=== PATIENT | male | born 1975 | race Two or more races ===

== ENCOUNTER 2020-03-03 03:53 | Emergency (ER) | payer OTHER ==
[~2020-03-03] VITALS: Ht 180.3 cm; Wt 106.7 kg
--- NOTE | 2020-03-03 04:18 | NUR ---
Patient presents to ER c/o LLQ abd pain x1 day. Seen yesterday and dx with kidney stones. Hx of kidney stones. Here today for pain control.
[2020-03-03] MEDS ORDERED: ONDANSETRON 2MG/ML, 2ML ONE (04:46)
[2020-03-03] MEDS ORDERED: KETOROLAC 30 MG/1 ML ONE (04:46)
[2020-03-03] MEDS ORDERED: MORPHINE SULFATE 4 MG/ML, 1ML ONE ×2 (04:46→06:18)
[2020-03-03] MEDS ORDERED: SODIUM CHLORIDE FLUSH 10ML SYR IVF ONE (05:00)
[2020-03-03] MEDS ORDERED: KETOROLAC 30 MG/1 ML IVPush ONE (05:00)
[2020-03-03] MEDS ORDERED: ONDANSETRON 2MG/ML, 2ML IVPush ONE (05:00)
[2020-03-03] MEDS: MORPHINE SULFATE 4 MG/ML, 1ML IVPush PRN ×2 (05:03→06:22)
[2020-03-03 05:16] LABS: MICROSCOPIC AUTO
[2020-03-03 05:37] LABS: BASOPHILS # (AUTO) 0.06 x10^3/uL (0-0.1); BASOPHILS % (AUTO) 1 % (0-1); EOSINOPHILS # (AUTO) 0.18 x10^3/uL (0-0.4); EOSINOPHILS % (AUTO) 2 % (1-7); LYMPHOCYTES # (AUTO) 1.42 x10^3/uL (1-3.4); LYMPHOCYTES % (AUTO) 15 % (22-44); MD NO; MEAN CORPUSCULAR HGB CONC 33.6 g/dL (33.2-36.2); MEAN CORPUSCULAR VOLUME 92.2 fL (81-97); MEAN PLATELET VOLUME 8.7 fL (7.4-10.4); MONOCYTES # (AUTO) 0.53 x10^3/uL (0.2-0.8); MONOCYTES % (AUTO) 5 % (2-9); NEUTROPHILS # (AUTO) 7.63 x10^3/uL (1.8-6.8); NEUTROPHILS % (AUTO) 78 % (42-75); PLATELET COUNT 159 x10^3/uL (130-400); RED BLOOD COUNT 5.15 x10^6/uL (4.38-5.82); RED CELL DISTRIBUTION WIDTH 13.4 % (9.4-14.8)
[2020-03-03 05:50] LABS: ALBUMIN 3.8 g/dL (3.4-5.0); ANION GAP 9 mmol/L (5-15); CALCIUM 8.5 mg/dL (8.5-10.1); CHLORIDE 110 mmol/L (98-107); CREATININE 1.21 mg/dL (0.7-1.3)
[2020-03-03 06:07] VITALS: BP 158/96
== END 2020-03-03 06:57 | disposition home or self-care (01) ==
LOC: ED 05:42
DX: N13.2 Hydronephrosis with renal and ureteral calculous obstruction (principal); K57.30 Diverticulosis of large intestine without perforation or abscess without bleeding; R11.2 Nausea with vomiting, unspecified
CPT/HCPCS: 36415; 74176; 80048; 81001; 82040; 85025; 96374; 96375; 96376; 99284; J1885; J2270; J2405